=== PATIENT | male | born 1980 | race Caucasian/White ===

== ENCOUNTER 2022-02-17 09:12 | Emergency (ER) | payer OTHER ==
[~2022-02-17] VITALS: Ht 180.3 cm; Wt 99.8 kg
[2022-02-17] MEDS ORDERED: IBUP-1955 PO (09:26)
--- NOTE | 2022-02-17 09:38 | NUR ---
SEEN BY DR FRITZ. PATIENT WAS OFFERED KRISTI BANDAGE AND PAIN MEDICATION BUT REFUSED. MEDICALLY CLEARED FOR BOOKING. D/C TO PD IN STABLE CONDITION.
== END 2022-02-17 09:39 ==
LOC: ER 09:19
DX: M25.572 Pain in left ankle and joints of left foot (principal)